=== PATIENT | female | born 1945 | race African-American/Black ===

== ENCOUNTER 2018-08-28 05:44 | Day surgery (SDC) | payer MEDICARE, OTHER ==
--- NOTE | 2018-08-27 12:39 | Pre-Procedure Note/Attestation ---
Pre-Procedure Note/Attestation Complete Prior to Procedure Planned Procedure: left Procedure Narrative: Cataract extraction with intraocular lens implant left eye Indications for Procedure Pre-Operative Diagnosis: Nuclear sclerotic cataract left eye Attestation I attest that I discussed the nature of the procedure; its benefits; risks and complications; and alternatives (and the risks and benefits of such alternatives ), prior to the procedure, with the patient (or the patient's legal passenger representative). I attest that, if there was a reasonable possibility of needing a blood transfusion, the patient (or the patient's legal passenger representative) was given the [facility] standardized written summary, pursuant to the [place] Blood Safety Act ([place] Health and Safety Code # 1645, as amended). I attest that I re-evaluated the patient just prior to the surgery and that there has been no change in the patient's H&P, except as documented below: Abraham Sebastian MD Aug 27, 2018 12:39
--- NOTE | 2018-08-27 12:42 | Opthalmology H&P ---
Ophthalmology H&P H&P Chief Complaint: decreased vision in left eye HPI Vision Affects Ability to: read, manage personal affairs HPI Narrative blurry vision Exam Visual Acuity: OD 20/50 OS 20/80 Tension: OD 13 OS 11 Eye Exam: normal OU: external exam, palpebral fissure-width, marginal reflex distance, levator function, corneas, anterior chambers, lens - NS Cataract OU, fundus exam; findings: lens - NS Cataract OU Assessment/Plan Treatment Plan: cataract extraction w/ lens implant Goals of Treatment: improvement of vision, enhance quality of life Attestation Attestation The risks and benefits of the surgery as well as alternative procedures were explained to the patient in detail. Abraham Sebastian MD Aug 27, 2018 12:42
[2018-08-28] VITALS (10 sets, daily range): BP systolic 121–143; BP diastolic 55–80
[~2018-08-28] VITALS: Ht 170.2 cm; Wt 77.1 kg
[2018-08-28] MEDS: Cyclopentolate 1% Opth Sol 2ml LEFT EYE SCH ×3 (06:56→07:20)
[2018-08-28] MEDS: Phenylephrine 10% Opth Soln 5ml LEFT EYE SCH ×3 (06:57→07:20)
[2018-08-28] MEDS: Tobramycin Op Soln 0.3% 5ml LEFT EYE SCH ×3 (06:57→07:20)
[2018-08-28] MEDS: Tropicamide 1% Opth 15ml Soln LEFT EYE SCH ×3 (06:57→07:20)
[2018-08-28] MEDS ORDERED: Pred Forte 1% Opth Susp 1ml ONE (07:00)
[2018-08-28] MEDS ORDERED: Akten 3.5% 1ml Btl LEFT EYE ONE (07:00)
[2018-08-28] MEDS ORDERED: Maxitrol Opth Oint 3.5gm ONE (07:00)
[2018-08-28] MEDS ORDERED: Pilocarpine 1% Opth 15ml Soln ONE (07:00)
[2018-08-28] MEDS ORDERED: Proparacaine 0.5% Opth Soln 15ml LEFT EYE ONE (07:00)
[2018-08-28] MEDS ORDERED: Diclofenac Sod 0.1% Op Soln LEFT EYE SCH (07:00)
[2018-08-28] MEDS ORDERED: Dexamethasone 4mg/ml vial ONE (07:00)
[2018-08-28] MEDS ORDERED: Tetracaine 0.5% Opth 4ml Soln LEFT EYE ONE (07:00)
[2018-08-28] MEDS ORDERED: LISINOPRIL-HCT1 EACH ORAL (07:07)
[2018-08-28] MEDS ORDERED: METFORMIN HCL500 M1 ORAL (07:07)
[2018-08-28] MEDS ORDERED: EPINEPHrine 1mg/1ml Amp ONE (07:27)
[2018-08-28] MEDS ORDERED: Carbachol 0.01% Op Soln 1.5ml vial ONE (07:27)
[2018-08-28] MEDS ORDERED: Lidocaine 2% MPF 5ml Vial INJ ONE (07:27)
[2018-08-28] MEDS ORDERED: Lidocaine 4% Amp ONE (07:27)
[2018-08-28] MEDS ORDERED: acetaZOLAMIDE 500mg Inj ONE (07:28)
[2018-08-28] MEDS ORDERED: BSS 15ml BTL ONE (07:28)
[2018-08-28] MEDS ORDERED: BSS 500ml btl ONE (07:28)
[2018-08-28] MEDS ORDERED: Sodium Hyaluronate 14 mg/ml 0.85ml ONE (07:29)
[2018-08-28] MEDS ORDERED: Bupivacaine 0.75% 30ml vial INJ ONE (07:29)
[2018-08-28] MEDS ORDERED: Povidone-Iodine 5% opth solution ONE (07:31)
[2018-08-28] MEDS ORDERED: Midazolam 2mg/2ml Inj ONE (08:09)
[2018-08-28] MEDS ORDERED: fentaNYL 100 mcg/2 mL IV ONE (08:09)
[2018-08-28] MEDS ORDERED: Sterile Water Irrig 1000ml IRRIG ONE (08:30)
[2018-08-28] MEDS ORDERED: LR 1000ml ONE (08:30)
[2018-08-28] MEDS ORDERED: NS Irrig 1000ml ONE (08:30)
--- NOTE | 2018-08-28 08:40 | Anethesia Preoperative Eval ---
Anesthesia Pre-op PMH/ROS General Date of Evaluation: Aug 28, 2018 Time of Evaluation: 08:30 Anesthesiologist: mario ASA Score: ASA 2 Mallampati Score Class I : Soft palate, uvula, fauces, pillars visible Class II: Soft palate, uvula, fauces visible Class III: Soft palate, base of uvula visible Class IV: Only hard plate visible Mallampati Classification: Class III Surgeon: sarahi Diagnosis: cataract Surgical Procedure: cataract extraction Anesthesia History: none Family History: no anesthesia problems Allergies: Coded Allergies: No Known Allergies (Unverified , 08/27/18) Medications: see eMAR Patient NPO?: Yes NPO Date: Aug 28, 2018 NPO Time: 00:01 Past Medical History Cardiovascular: Reports: HTN; Denies: CAD, [place], valve dz, arrhythmia, other Pulmonary: Denies: asthma, COPD, REAGAN, other Gastrointestinal/Genitourinary: Denies: GERD, CRI, ESRD, other Neurologic/Psychiatric: Denies: dementia, CVA, depression/anxiety, TIA, other Endocrine: Reports: DM; Denies: hypothyroidism, steroids, other HEENT: Reports: cataract (L); Denies: cataract (R), glaucoma, SHOSHONE-PAIUTE (L), SHOSHONE-PAIUTE (R), other Hematology/Immune: Denies: anemia, DVT, bleeding disorder, other PSxH Narrative: leg surgery Anesthesia Pre-op Phys. Exam Physician Exam Last Vital Signs Date Time Temp Pulse Resp B/P (MAP) Pulse Ox O2 Delivery O2 Flow Rate FiO2 08/28/18 07:13 97.9 55 20 123/62 98 Room Air Constitutional: NAD Neurologic: CN 2-12 intact Cardiovascular: RRR Respiratory: CTA Gastrointestinal: S/NT/ND Airway Exam Mallampati Classification 3 Mallampati Score: Class II MO: full ROM: full Dentures: no upper, no lower Anesthesia Pre-op A/P Studies Pre-op Studies: EKG - sr Risk Assessment & Plan Assessment: denies angina; sob Plan: mac Pre-Antibiotics Drug: declined Karma Leslie CRNA Aug 28, 2018 08:40
[2018-08-28] MEDS ORDERED: fentaNYL 100 mcg/2 mL IV PRN (08:45)
--- NOTE | 2018-08-28 09:26 | Immediate Post-Op Evaluation ---
Immediate Post-Op Evalulation Immediate Post-Op Evalulation Procedure: cataract extraction left eye Date of Evaluation: Aug 28, 2018 Time of Evaluation: 09:25 IV Fluids: 300 Blood Pressure Systolic: 130 Blood Pressure Diastolic: 60 Pulse Rate: 58 Respiratory Rate: 14 O2 Sat by Pulse Oximetry: 98 Temperature (Fahrenheit): 97.7 Pain Score (1-10): 0 Nausea: No Vomiting: No Patient Status: awake, reacts, patent Hydration Status: adequate Drug: none SnehalriKarma chiu CRNA Aug 28, 2018 09:26
--- NOTE | 2018-08-28 12:58 | 48 Hour Post Anesthesia Eval ---
Post Anesthesia Evaluation Procedure: cataract extraction left eye Date of Evaluation: Aug 28, 2018 Time of Evaluation: 12:58 Blood Pressure Systolic: 139 0: 69 Pulse Rate: 51 Respiratory Rate: 14 O2 Sat by Pulse Oximetry: 98 Airway: patent Nausea: No Vomiting: No Hydration Status: adequate Cardiopulmonary Status: stable Mental Status/LOC: patient returned to baseline Follow-up Care/Observations: na Post-Anesthesia Complications: none Follow-up care needed: N/A Karma Leslie CRNA Aug 28, 2018 12:58
--- NOTE | 2018-08-31 11:07 | Brief Operative Note ---
Immediate Post Operative Note Operative Note Chief Complaint: Blurry vision Pre-op Diagnosis: Nuclear sclerotic cataract left eye Procedure: Cataract extraction with intraocular lens implant left eye Post-op Diagnosis: Pseudophakia left eye Post-op Diagnosis: same as pre-op Surgeon: Abraham Sebastian MD Anesthesiologist: Karma Leslie CRNA Anesthesia: MAC Specimen: none Complications: none Condition: stable Fluids: LR Estimated Blood Loss: none Drains: none Implant(s) used?: Yes - IOL Abraham Sebastian MD Aug 31, 2018 11:07
--- NOTE | 2018-08-31 11:11 | Operative Note - PDOC ---
Operative Note Operative Note Date of Operation/Procedure: Aug 28, 2018 Chief Complaint: Blurry vision Pre-op Diagnosis: Nuclear sclerotic cataract left eye Procedure: Cataract extraction with intraocular lens implant left eye Post-op Diagnosis: Pseudophakia left eye Post-op Diagnosis: same as pre-op Surgeon: Abraham Sebastian MD Anesthesiologist: Karma Leslie CRNA Anesthesia: MAC Specimen: none Complications: none Condition: stable Fluids: LR Estimated Blood Loss: none Drains: none Implant(s) used?: Yes Indications for Procedure Nuclear sclerotic cataract left eye Description of Procedure This patient has been complaining of a visually significant cataract in the left eye with the best corrected visual acuity of 20/80 under moderate glare conditions worse. The patient complains of difficulties with glare in performing activities of daily living and wants to manage personal affairs with comfort and accuracy and see well enough to move with safety at home and outdoors. The risks, benefits and alternatives of the procedure were discussed with the patient in the office prior to scheduling surgery. All questions from the patient were answered after the surgical procedure was explained in detail. The risks of the procedure as explained to the patient include, but are not limited to, pain, infection, bleeding, loss of vision, retinal detachment, need for further surgery, loss of lens nucleus, double vision, etc. Alternative procedures were discussed which include, to do nothing or seek a second opinion. Informed consent for this procedure was obtained from the patient. The patient was referred to a primary care physician for a cardiopulmonary clearance prior to surgery, after proper evaluation was done patient was properly scheduled for outpatient surgery. The patient was brought to the operating room where the anesthesiologist established I.V. lines and cardiac monitoring leads. Mild intravenous sedation was administered. The patient was then prepared with a 5% solution of povidone -iodine to the conjunctival fornix and lashes, and a 5% solution of povidone- iodine to the lids and periorbital skin. The patient was then draped in the usual sterile fashion. A lid speculum was then placed in the operative eye. A keratome blade was then used to create a biplanar incision into the anterior chamber. Viscoelastics was then instilled into the anterior chamber. A curvilinear capsulorrhexis was then fashioned with an utrata forceps. A BSS was used with G-27 cannula was used to hydrodissect and hydrodelineate the lens nucleus. Paracentesis incision was made at 9 o'clock with sharp blade. The phacoemulsification unit, after being properly adjusted and tested, was then used to emulsify the nucleus. Residual cortical material was aspirated with the irrigation and aspiration unit. Healon was then instilled into the anterior chamber. The corneal wound was then enlarged to the size of the optic with the rosa maria keratome blade. The intraocular lens was then inspected for right power and size and thought to be satisfactory. Then the lens was gently placed in the capsular bag. Positioning within the capsular bag was confirmed by direct visualization. Optic centration was accomplished with a Sinskey hook. Viscoelastics was removed from the anterior chamber using the irrigation and aspiration unit. The corneal wound was then tested for leaks and none were found. The lid speculum were then removed. Sponge and needle counts were correct. An eye patch and shield were placed over the operative eye. The patient was taken to the recovery room in stable condition. There were no complications. The patient tolerated the procedure well. The patient was then transferred to the ambulatory surgery unit in stable and satisfactory condition , was given detailed written instructions and asked to follow up in the office the next day. Abraham Sebastian MD Aug 31, 2018 11:11
== END 2018-08-28 10:30 | disposition home or self-care (01) ==
LOC: SUR 05:44
DX: H25.12 Age-related nuclear cataract, left eye (principal); I10 Essential (primary) hypertension; E11.9 Type 2 diabetes mellitus without complications
CPT/HCPCS: 66984; 82962; J0171; J1100; J2250; J3010; J3370; V2632; 94003; 94150